=== PATIENT | male | born 2000 | race American Indian/Alaskan Native ===

== ENCOUNTER 2019-01-07 07:58 | Day surgery (SDC) | payer MEDICAID ==
[~2019-01-07 07:58] MED LIST: PRED FORTE 1% OD NR; XYLOCAINE 2%/ EPI 1:200,000 INFILTRATI ONE; mitoMYcin 0.02% Opth Soln *OR USE ONLY OP NR
[2019-01-07] MEDS: VIGAMOX OD SCH ×3 (09:00→09:15)
--- NOTE | 2019-01-07 09:15 | Anesthesia Consultation ---
Anesthesia Consult and Med Hx - Airway Anesthetic Teeth Evaluation: Good ROM Head & Neck: Adequate Mental/Hyoid Distance: Adequate Mallampati Class: Class III - Pulmonary Exam CTA: Yes - Cardiac Exam Cardiac Exam: No Murmur - Pre-Operative Health Status ASA Pre-Surgery Classification: ASA1 Proposed Anesthetic Plan: MAC
--- NOTE | 2019-01-07 09:15 | Anesthesia Day of Surgery ---
Anesthesia Day of Surgery - Day of Surgery Patient Examined: Yes Patient H&P Reviewed: Yes Patient is NPO: Yes Beta Blockers: No
[2019-01-07] MEDS ORDERED: TETRACAINE 0.5% OD SCH (10:00)
[2019-01-07] MEDS ORDERED: VERSED ONE (10:05)
[2019-01-07] MEDS ORDERED: SUBLIMAZE ONE (10:05)
[2019-01-07] MEDS ORDERED: WATER FOR IRRIG STERILE IR ONE (10:26)
[2019-01-07] MEDS ORDERED: mitoMYcin 0.02% Opth Soln *OR USE ONLY OD ONE (10:26)
[2019-01-07] MEDS ORDERED: XYLOCAINE MPF 2% INFILTRATI ONE (10:26)
[2019-01-07 11:46] VITALS: BP 105/72
--- NOTE | 2019-01-07 12:21 | Operative Report ---
Operative Report Operative Report: PREOPERATIVE DIAGNOSIS: Pterygium with visual distortion, _right_eye POSTOPERATIVE DIAGNOSIS: Pterygium with visual distortion, right eye OPERATIVE PROCEDURE: Excision of pterygium with mitomycin C x 90 secs and amniotic graft membrane left right eye SURGEON: Kenisha Waterman M.D. SENIOR RESEARCH FELLOW SURGEON: garfield ANESTHESIA: Monitored anesthesia care OPERATIONS LOGISTICS ANALYST: COMPLICATIONS: None ALLERGIES: NKDA PREOPERATIVE NOTE: The risks, benefits and alternatives of surgery were explained to the patient who after confirmining understanding elected to proceed with surgery. The risks discussed included but were not limited to infection, further surgery, loss of vision, loss of the eye. The patient had multiple opportunities to ask questions and have them answered. Preoperative instruction sheet was provided and explained to the patient and/or family. PROGNOSIS: Excellent INDICATIONS FOR SURGERY: Distortion of vision from the lesion. Without treatment, permanent visual loss is expected. OPERATIVE REPORT: The patient was taken into the preoperative area and then sedated and monitored by Anesthesia. The patient was prepped by applying a Betadine scrub to the periorbital area, the adjacent cheek, and the forehead. The prepped areas were dried with sterile gauze. The patient was draped, and a speculum was placed between the eyelids. 2% lidocaine was injected below the body of the pterygium. A cut-down was made through the body of the pterygium to bare sclera. The dissection was then carried towards the limbus, elevating up the pterygium. Moderate bleeding was encountered and treated with cautery. Once the dissection was taken to the limbus, the head of the pterygium was dissected off the cornea with a [place]oke knife. The pterygium was densely scarred into the underlying stroma, making the dissection process difficult to perform. A superficial dissection plane was made in a few areas. The mass of fibrous growth was then excised from the limbus. This pterygium was found to be very thick reminiscent of her recurrent to pterugium. A mendez bur on a high-speed drill was used to smooth the area of the cornea where the pterygium was removed. This was done in order to leave the tissue smooth and minimize the chance of recurrence. A rough limbal surface increases the risks of irritation, inflammation, and the possibility of postoperative recurrence in the eye. The limbal area was smoothed with the mendez bur, and care was taken not to remove too much tissue, leaving the cornea ectatic. After the scar tissue was removed, Mitomycin-C was placed on bare sclera x 90 secs on the eye with Weck-girma sponges and immediately irrigated off. The irrigation was done liberally to prevent any Mitomycin-C contamination to the rest of the field and the eye. The cornea was irrigated with balanced salt solution. Once the pterygium was excised and the cornea smoothed, cautery was used to control any bleeding in the bed of bare sclera. The peripheral edges of remaining conjunctiva around the bare sclera had its edges undermined slightly to allow it to be fixed to the underlying sclera when the tissue adhesive would be applied. Calipers were then used to measure the width and length of the area of bare sclera. After marking the tips of the calipers, they were used to amos the amniotic graft. Scissors were next used to first undermine and then excise the graft. Fine-tooth forceps were used carefully to elevate the graft and moved to the area of the bare sclera. It was moved carefully to make sure that first of all the epithelial side remained upward . After the graft was found to be suitable for the area to be covered, it was temporarily moved off the bare sclera and Tisseel tissue adhesive was applied in its two components as separate stages over the area of bare sclera. The graft was placed back in position and its edges were first pushed down 360 to allow firm fixation. The central area was also pushed down with firm pressure from a flat surfaced instrument. Next the edges of the previously undermined adjacent conjunctiva were pushed down to allow firm fixation. The flap was allowed to stay unmanipulated for ten minutes prior to removing the lid speculum. MEDICATIONS APPLIED AT END OF SURGERY: bandage Contact lens was placed onto the eye fallowed by the application of Vigamox. DISCHARGE SUMMARY: The patient was released in stable condition. The patient and those with the patient were given a written sheet of postoperative instructions and counseling on any abnormal laboratory studies. They are to call immediately for difficulties.
--- NOTE | 2019-01-07 12:22 | Short Stay Summary ---
Short Stay Documentation Date of service: 01/07/19 - History H&P: obtained from office - Allergies and Medications Current Medications: Allergies No Known Allergies Allergy (Unverified 01/06/19 14:24) - Brief post op/procedure progress note Date of procedure: 01/07/19 Pre-op diagnosis: right pterygium Post-op diagnosis: same Procedure: Pterygium excision with mitomycin C in milligrams membrane placement right eye Anesthesia: MAC, local Surgeon: JOSE JORGE Estimated blood loss: minimal Pathology: list (right nasal pterygium) Condition: stable - Disposition Condition at discharge: Good Disposition: DC-01 TO HOME OR SELFCARE - Discharge Diagnoses (1) Pterygium of right eye Status: Resolved Short Stay Discharge Plan Additional Instructions: FOLLOW SURGEON INSTRUCTION SHEETS. Follow up with: PRIMARY CARE, [Primary Care Provider] - 7 Days Forms: [facility]
== END 2019-01-07 11:55 | disposition home or self-care (01) ==
LOC: OR 07:58
DX: H11.001 Unspecified pterygium of right eye (principal); H53.8 Other visual disturbances; Z79.899 Other long term (current) drug therapy
CPT/HCPCS: 65426; 88304; C9250; J2250; J3010; J7315; V2790